=== PATIENT | male | born 1970 ===

== ENCOUNTER 2017-10-08 07:22 | Emergency (ER) | payer OTHER ==
[2017-10-08 07:42] VITALS: RESP 18; TEMP 97.9
[2017-10-08 09:08] LABS: BASO % 0.8 % (0.0-2.0); EOS # 0.1 K/uL (0.0-0.7); EOS % 1.3 % (0.0-4.0); HEMOGLOBIN 13.7 g/dL (12.0-18.0); LYMPH # 1.8 K/uL (1.0-4.3); LYMPH % 42.8 % (20.0-40.0); MEAN CELL VOLUME 85.4 fL (80.0-94.0); MEAN CORPUSCULAR HEMOGLOBIN 29.1 pg (27.0-31.0); MEAN CORPUSCULAR HGB CONC 34.1 g/dL (33.0-37.0); MEAN PLATELET VOLUME 10.2 fL (7.2-11.7); MONO # 0.5 K/uL (0.0-0.8); MONO % 10.8 % (0.0-10.0); NEUT # 1.9 K/uL (1.8-7.0); NEUT % 44.3 % (50.0-75.0); RBC 4.72 Mil/uL (4.40-5.90); RED CELL DISTRIBUTION WIDTH 13.3 % (11.5-14.5); WHITE BLOOD COUNT 4.3 K/uL (4.8-10.8)
[2017-10-08] MEDS ORDERED: Sodium Chloride 0.9% 1,000 ML ONE (09:08)
[2017-10-08] MEDS: Sodium Chloride 0.9% 1,000 ML IV ONE (09:20)
[2017-10-08 09:53] LABS: ALB/GLOB RATIO 1.3 (1.0-2.1); ALBUMIN 3.9 g/dL (3.5-5.0); CALCIUM 7.5 mg/dl (8.6-10.4); GFR AFRICAN-AMERICAN > 60; GFR NON-AFRICAN AMERICAN > 60
[2017-10-08 09:59] LABS: ALT/SGPT 35 U/L (21-72); AST/SGOT 29 U/L (17-59); BLOOD UREA NITROGEN 14 mg/dL (9-20)
[2017-10-08 10:06] LABS: CK-MB 1.83 ng/mL (0.0-3.38)
--- NOTE | 2017-10-08 10:26 | C.PDOC ---
History Of Present Illness 47 year old male presents to the ED for evaluation of dizziness which began this morning. He states the dizzines feels like the room is spinning around him , and symptoms worsen with movement of his head. Patient reports associated nausea. He denies headache, visual changes, facial droop, slurred speech, chest pain, shortness of breath, extremity weakness, sensory changes, gait changes. Time Seen by Provider: 10/08/17 07:25 Chief Complaint (Nursing): Dizziness/Lightheaded History Per: Patient History/Exam Limitations: no limitations Onset/Duration Of Symptoms: Hrs Current Symptoms Are (Timing): Still Present Associated Symptoms Preceding Syncopal Episode: Vertigo Worse With Change In Head Position Seizure Or Post-ictal Symptoms: None Possible Causative Factor(s): Vertigo Severity: Moderate Additional History Per: Patient Past Medical History Reviewed: Historical Data, Nursing Documentation, Vital Signs Vital Signs: Last Vital Signs Temp 97.9 F 10/08/17 07:29 Pulse 62 10/08/17 12:10 Resp 18 10/08/17 12:10 BP 124/80 10/08/17 12:10 Pulse Ox 99 10/08/17 12:51 - Medical History PMH: HTN (no meds) Surgical History: No Surg Hx Family History: States: No Known Family Hx - Social History Hx Alcohol Use: Yes Hx Substance Use: No - Immunization History Hx Tetanus Toxoid Vaccination: No Hx Influenza Vaccination: No Hx Pneumococcal Vaccination: No Review Of Systems Constitutional: Negative for: Fever, Chills Eyes: Negative for: Vision Change Cardiovascular: Negative for: Chest Pain, Palpitations Respiratory: Negative for: Shortness of Breath Gastrointestinal: Positive for: Nausea. Negative for: Vomiting, Abdominal Pain , Diarrhea Neurological: Positive for: Dizziness. Negative for: Weakness, Numbness, Incoordination, Change in Speech, Altered Mental Status, Headache Physical Exam - Physical Exam Appears: Well, Non-toxic, Other (appears mildly uncomfortable) Skin: No Rash Head: Atraumatic, Normacephalic Eye(s): bilateral: Normal Inspection, PERRL, EOMI, Other (no nystagmus ) Oral Mucosa: Moist Neck: Normal, Supple Cardiovascular: Rhythm Regular, No Murmur Respiratory: Normal Breath Sounds, No Rales, No Rhonchi, No Wheezing Gastrointestinal/Abdominal: Normal Exam, Bowel Sounds, Soft, No Tenderness Neurological/Psych: Oriented x3, Normal Speech, Normal Cognition, Normal Cranial Nerves, No Cerebellar Signs, Normal Motor, Normal Sensation Gait: Steady ED Course And Treatment - Laboratory Results Result Diagrams: 10/08/17 09:05 10/08/17 09:37 O2 Sat by Pulse Oximetry: 99 (on RA) Pulse Ox Interpretation: Normal Progress Note: Accucheck ordered and reviewed, and patient gvien PO Meclizine. Patient continued to complains dizziness after PO med. Blood work ordered and reviewed. Patient given IV NS bolus, IV ativan. Reevaluation Time: 11:30 Reassessment Condition: Improved (On reassessment, patient states he feels better and dizziness has significantly improved. Patient is AAOx3 and ambulating normally in ED. Rx for meclizine given, and patient instructed to follow up with ENT within 1 week. He understands he should return to ED if symptoms worsen.) Disposition Counseled Patient/Family Regarding: Studies Performed, Diagnosis, Need For Followup, Rx Given - Disposition Referrals: Juanito Patel MD [Staff Provider] - Disposition: HOME/ ROUTINE Disposition Time: 11:30 Condition: STABLE Additional Instructions: FOLLOW UP WITH YOUR DOCTOR/CLINIC IN 1-2 DAYS USE MEDICATION NEEDED RETURN TO EMERGENCY ROOM IF SYMPTOMS WORSEN SEGUIMIENTO CON SOLER MDICO / CLNICA EN 1-2 STACK USE MEDICAMENTOS SEGN SEA NECESARIO REGRESE AL PRABHA DE EMERGENCIA SI LOS SNTOMAS EMPEORAN Prescriptions: Meclizine [Meclizine*] 25 mg PO Q6 #20 tab Instructions: Vertigo (a Type of Dizziness) (DC) Forms: [employer] (Urdu), Work Excuse Print Language: SAMI - Clinical Impression Clinical Impression: Peripheral vertigo - Scribe Statement The provider has reviewed the documentation as recorded by the Scribe (Jennifer Mace) Provider Attestation: All medical record entries made by the Scribe were at my direction and personally dictated by me. I have reviewed the chart and agree that the record accurately reflects my personal performance of the history, physical exam, medical decision making, and the department course for this patient. I have also personally directed, reviewed, and agree with the discharge instructions and disposition.
[2017-10-08 12:11] VITALS: BP 124/80; PULSE 62
[2017-10-08 12:22] VITALS: O2SAT 99
--- NOTE | 2017-10-09 11:58 | CARD ---
APPROVED REPORT EKG Measurement Heart [id number] <Conclusion> Sinus bradycardia with 1st degree AV block Otherwise normal ECG
== END 2017-10-08 12:15 | disposition home or self-care (01) ==
LOC: C.ER 07:22
DX: H81.399 Other peripheral vertigo, unspecified ear (principal); I10 Essential (primary) hypertension
CPT/HCPCS: 80053; 82948; 84484; 85025; 93005; 96361; 96374; 99285; J2060; J7040

== ENCOUNTER 2018-02-25 13:02 | Emergency (ER) | payer OTHER ==
[2018-02-25 13:11] VITALS: BMI 40.6
[2018-02-25 13:17] VITALS: BP 135/84; PULSE 74; TEMP 98.5; O2SAT 99
--- NOTE | 2018-02-25 13:38 | C.PDOC ---
Time Seen by Provider: 02/25/18 13:18 Chief Complaint (Nursing): Upper Extremity Problem/Injury Past Medical History Vital Signs: Last Vital Signs Temp 98.5 F 02/25/18 13:10 Pulse 74 02/25/18 13:10 Resp 18 02/25/18 13:10 BP 135/84 02/25/18 13:10 Pulse Ox 99 02/25/18 13:10 - Medical History PMH: HTN (no meds) Family History: States: Unknown Family Hx - Social History Hx Alcohol Use: Yes Hx Substance Use: No - Immunization History Hx Tetanus Toxoid Vaccination: No Hx Influenza Vaccination: No Hx Pneumococcal Vaccination: No ED Course And Treatment O2 Sat by Pulse Oximetry: 99 Disposition Counseled Patient/Family Regarding: Diagnosis, Need For Followup - Disposition Referrals: [facility] [Outside] [facility] [Outside] Disposition: HOME/ ROUTINE Disposition Time: 13:31 Condition: GOOD Instructions: Tendonitis (DC) Forms: [employer] (Uzbek), Work Excuse Print Language: ERITREAN - Clinical Impression Clinical Impression: Tendonitis
[2018-02-25 13:48] VITALS: RESP 20
== END 2018-02-25 13:37 | disposition home or self-care (01) ==
LOC: C.ER 13:02
DX: M77.8 Other enthesopathies, not elsewhere classified (principal)

== ENCOUNTER 2018-05-13 20:23 | Emergency (ER) | payer OTHER ==
[2018-05-13 20:24] VITALS: BMI 40.6
[2018-05-13 20:38] VITALS: RESP 20; O2SAT 98
--- NOTE | 2018-05-13 20:39 | C.PDOC ---
History Of Present Illness 48 y/o male presents to the ED complaining that last night he felt a funny sensation in his left upper chest. He describes the sensation as a squeezing pain. Patient then had another episodes this morning. At present, patient repor ts he feels fine now. Symptoms are not reproducible. Otherwise he denies any associated SOB, nausea, vomiting, fever, or chills. Time Seen by Provider: 05/13/18 20:38 Chief Complaint (Nursing): Chest Pain History Per: Patient History/Exam Limitations: no limitations Onset/Duration Of Symptoms: Intermittent Episodes Current Symptoms Are (Timing): Gone Severity: Mild Pain Scale Rating Of: 2 Quality: Dull, Aching Alleviating Factors: None Recent travel outside of the [place]: No Additional History Per: Patient Past Medical History Reviewed: Historical Data, Nursing Documentation, Vital Signs Vital Signs: Last Vital Signs Temp 98.1 F 05/13/18 20:35 Pulse 74 05/13/18 20:35 Resp 20 05/13/18 20:35 BP 147/79 05/13/18 20:35 Pulse Ox 98 05/13/18 20:35 - Medical History PMH: HTN (no meds) Surgical History: Hernia Repair Family History: States: No Known Family Hx - Social History Hx Tobacco Use: No Hx Alcohol Use: Yes Hx Substance Use: No - Immunization History Hx Tetanus Toxoid Vaccination: No Hx Influenza Vaccination: No Hx Pneumococcal Vaccination: No Review Of Systems Constitutional: Negative for: Fever, Chills, Sweats Eyes: Negative for: Vision Change Cardiovascular: Positive for: Chest Pain (now resolved). Negative for: Palpitations Respiratory: Negative for: Shortness of Breath Gastrointestinal: Negative for: Nausea, Vomiting Neurological: Negative for: Weakness, Dizziness Physical Exam - Physical Exam Appears: Non-toxic, No Acute Distress Skin: Warm, Dry Head: Normacephalic Eye(s): bilateral: Normal Inspection Oral Mucosa: Moist Neck: Trachea Midline, Supple Chest: Symmetrical, No Tenderness Cardiovascular: Rhythm Regular Respiratory: No Rales, No Rhonchi, No Wheezing Gastrointestinal/Abdominal: Soft, No Tenderness, No Distention Extremity: Normal ROM Extremity: Bilateral: Atraumatic, Normal Color And Temperature Pulses: Left Dorsalis Pedis: Normal, Right Dorsalis Pedis: Normal Neurological/Psych: Oriented x3 Gait: Steady ED Course And Treatment - Laboratory Results Result Diagrams: 05/13/18 20:48 05/13/18 20:48 ECG: Interpreted By Me, Viewed By Me ECG Rhythm: Sinus Rhythm (70), Nonspecific Changes O2 Sat by Pulse Oximetry: 98 (RA) Pulse Ox Interpretation: Normal - Radiology CXR: Interpreted by Me, Viewed By Me CXR Interpretation: No: Infiltrates, Fracture, Pnemothorax Progress Note: Blood work and urine sent to the lab. EKG and CXR ordered and reviewed. 325 mg Aspirin PO administered. Reevaluation Time: 23:07 Reassessment Condition: Improved Medical Decision Making Medical Decision Making: I considered the following diagnoses: acute coronary syndrome, pulmonary embolism, lower respiratory infection, aortic dissection/aneurysm, pneumothorax, pericarditis, esophagitis/GERD, zoster and esophageal rupture but found them to be unlikely based on the history, physical exam, and diagnostics. My conclusions regarding the unlikely diagnoses were based on: the absence of significant EKG abnormalities, the lack of suggestive x-ray findings, the absence of significant abnormalities on cardiac monitoring, the absence of asymmetric pulses,. Patient is chest pain free and wants to go home. Disposition Counseled Patient/Family Regarding: Studies Performed, Diagnosis, Need For Followup - Disposition Referrals: [facility] [Outside] [facility] [Outside] Disposition: HOME/ ROUTINE Disposition Time: 20:39 Condition: FAIR Additional Instructions: Please return if symptoms recur. Should you have chest pain, take 4 baby aspirin, call 911 and return to the emergency room Instructions: Chest Pain (DC) Forms: [employer] (Sami) - Clinical Impression Clinical Impression: Chest pain - Scribe Statement The provider has reviewed the documentation as recorded by the David Grissom Provider Attestation: All medical record entries made by the Steveibayan were at my direction and personally dictated by me. I have reviewed the chart and agree that the record accurately reflects my personal performance of the history, physical exam, medical decision making, and the department course for this patient. I have also personally directed, reviewed, and agree with the discharge instructions and disposition.
[2018-05-13] MEDS ORDERED: Aspirin 325 mg EC Tablets PO STA (20:40)
[2018-05-13] MEDS ORDERED: Aspirin 325 mg EC Tablets PO ONE (20:49)
[2018-05-13 20:52] LABS: BASO # 0.1 K/uL (0.0-0.2); BASO % 1.2 % (0.0-2.0); EOS # 0.2 K/uL (0.0-0.7); EOS % 3.3 % (0.0-4.0); HEMOGLOBIN 13.7 g/dL (12.0-18.0); LYMPH # 2.9 K/uL (1.0-4.3); LYMPH % 51.5 % (20.0-40.0); MEAN CELL VOLUME 84.2 fL (80.0-94.0); MEAN CORPUSCULAR HEMOGLOBIN 28.5 pg (27.0-31.0); MEAN CORPUSCULAR HGB CONC 33.8 g/dL (33.0-37.0); MEAN PLATELET VOLUME 9.5 fL (7.2-11.7); MONO # 0.7 K/uL (0.0-0.8); MONO % 11.7 % (0.0-10.0); NEUT # 1.8 K/uL (1.8-7.0); NEUT % 32.3 % (50.0-75.0); NRBC % 0.1 % (0.0-2.0); RBC 4.82 Mil/uL (4.40-5.90); RED CELL DISTRIBUTION WIDTH 13.5 % (11.5-14.5); WHITE BLOOD COUNT 5.6 K/uL (4.8-10.8)
[2018-05-13 21:14] LABS: ALB/GLOB RATIO 1.5 (1.0-2.1); ALBUMIN 4.7 g/dL (3.5-5.0); ALT/SGPT 49 U/L (21-72); AST/SGOT 43 U/L (17-59); BLOOD UREA NITROGEN 16 mg/dL (9-20); CALCIUM 9.2 mg/dl (8.6-10.4); GFR NON-AFRICAN AMERICAN > 60
[2018-05-13 22:39] LABS: SQUAMOUS EPITHIAL 1 /hpf (0-5); URINE BACTERIA OCC (<OCC); URINE BILIRUBIN NEGATIVE (NEGATIVE); URINE BLOOD NEGATIVE (NEGATIVE); URINE CLARITY Clear (Clear); URINE COLOR Yellow (YELLOW); URINE GLUCOSE (UA) NORMAL (Normal); URINE LEUKOCYTE ESTERASE 2+ Leu/uL (Negative); URINE PROTEIN NEGATIVE (NEGATIVE); URINE UROBILINOGEN NORMAL mg/dL (0.2-1.0)
[2018-05-13 23:34] VITALS: BP 120/71; PULSE 61; TEMP 97.8
--- NOTE | 2018-05-14 09:55 | RAD ---
Chest x-ray single frontal view HISTORY: Chest pain. COMPARISON: 05/13/2018 FINDINGS: Mild venous congestion. Patchy consolidative opacities at the bilateral lung bases; left greater than right. Small left pleural effusion. Bilateral hilar prominence. Cardiomegaly. Degenerative changes in the spine and shoulders. Impression: Mild venous congestion. Patchy consolidative opacities at the bilateral lung bases; left greater than right. Post treatment interval follow-up would be helpful. Small left pleural effusion. Bilateral hilar prominence. Cardiomegaly.
--- NOTE | 2018-05-14 22:18 | CARD ---
APPROVED REPORT Date of service: 05/13/2018 EKG Measurement Heart [id number] <Conclusion> Normal sinus rhythm Rightward axis Nonspecific T wave abnormality Abnormal ECG
== END 2018-05-13 23:35 | disposition home or self-care (01) ==
LOC: C.ER 20:23
DX: R07.9 Chest pain, unspecified (principal)